=== PATIENT | female | born 1945 ===

== ENCOUNTER 2021-05-25 06:42 | Day surgery (SDC) | payer OTHER | END 2021-05-25 11:30 | disposition home or self-care (01) | LOC: AMB-ENDOS 06:42 | PROVIDERS: ATTEND Colon & Rectal Surgery | DX: C18.5 Malignant neoplasm of splenic flexure (principal); K64.2 Third degree hemorrhoids; Z20.822 Contact with and (suspected) exposure to COVID-19 ==

== ENCOUNTER 2021-08-08 14:45 | Inpatient (IN) | payer OTHER ==
[~2021-08-08] VITALS: Ht 160 cm; Wt 59.0 kg
[~2021-08-08 14:45] MED LIST: ATORVASTATIN CA10 MG PO; JANUVIA25 MG PO; METFORMIN HCL500 M3 PO; XARELTO10 MG PO
[2021-08-15] MEDS ORDERED: OXYBUTYNIN CHLO10 MG (08:07)
[2021-08-15] MEDS ORDERED: GABAPENTIN100 M2 (08:07)
[2021-08-15] MEDS ORDERED: GLIMEPIRIDE4 M1 (08:08)
[2021-08-15] MEDS ORDERED: JANUMET 50-1,01 EACH (08:08)
[2021-08-15] MEDS ORDERED: FERROUS SULFAT325 MG (08:08)
[2021-08-15] MEDS ORDERED: ATORVASTATIN CA20 MG (08:08)
[2021-08-15] MEDS ORDERED: VITAMIN B-125000 MCG (08:11)
[2021-08-15] MEDS ORDERED: MECLIZINE HCL12.5 MG (08:12)
[2021-08-15] MEDS ORDERED: VITAMIN C1000 MG (08:12)
[2021-08-15] MEDS ORDERED: AMIODARONE HCL200 MG (08:13)
[2021-08-15] MEDS ORDERED: FOLIC ACID1 MG (08:13)
[2021-08-15] MEDS ORDERED: XARELTO2.5 MG (08:14)
[2021-08-23] MEDS ORDERED: TOPROL XL25 M1 PO (12:42)
[2021-08-23] MEDS ORDERED: XARELTO20 MG PO (12:42)
== END 2021-08-23 15:00 | disposition home or self-care (01) | DRG 329 ==
LOC: O/R 08-14 07:06 → SURH 08-14 08:45 → EDBD 08-14 08:45 → SURH 08-14 16:45
PROVIDERS: ADMIT Colon & Rectal Surgery; ATTEND Colon & Rectal Surgery
PROC: 0DBB4ZZ Excision of Ileum, Percutaneous Endoscopic Approach (ICD-10-PCS; 2021-08-14)
PROC: 0DTN4ZZ Resection of Sigmoid Colon, Percutaneous Endoscopic Approach (ICD-10-PCS; 2021-08-14)
PROC: 0DBP4ZZ Excision of Rectum, Percutaneous Endoscopic Approach (ICD-10-PCS; 2021-08-14)
PROC: 07BB4ZX Excision of Mesenteric Lymphatic, Percutaneous Endoscopic Approach, Diagnostic (ICD-10-PCS; 2021-08-14)
PROC: 0DBU4ZZ Excision of Omentum, Percutaneous Endoscopic Approach (ICD-10-PCS; 2021-08-14)
PROC: 0DBK4ZZ Excision of Ascending Colon, Percutaneous Endoscopic Approach (ICD-10-PCS; principal; 2021-08-14 16:45)
PROC: B020ZZZ Computerized Tomography (CT Scan) of Brain (ICD-10-PCS; 2021-08-16)
PROC: B24BYZZ Ultrasonography of Heart with Aorta using Other Contrast (ICD-10-PCS; 2021-08-19)
PROC: B345ZZZ Ultrasonography of Bilateral Common Carotid Arteries (ICD-10-PCS; 2021-08-19)
PROC: B348ZZZ Ultrasonography of Bilateral Internal Carotid Arteries (ICD-10-PCS; 2021-08-19)
PROC: B020ZZZ Computerized Tomography (CT Scan) of Brain (ICD-10-PCS; 2021-08-21)
DX: C18.2 Malignant neoplasm of ascending colon (principal); I63.81 Other cerebral infarction due to occlusion or stenosis of small artery; C18.5 Malignant neoplasm of splenic flexure; I48.20 Chronic atrial fibrillation, unspecified; I50.22 Chronic systolic (congestive) heart failure; E78.5 Hyperlipidemia, unspecified; R59.0 Localized enlarged lymph nodes; E11.9 Type 2 diabetes mellitus without complications; Z79.4 Long term (current) use of insulin; Z79.01 Long term (current) use of anticoagulants; Z95.0 Presence of cardiac pacemaker

== ENCOUNTER 2021-08-24 15:07 | Inpatient (IN) | payer OTHER ==
[~2021-08-24] VITALS: Ht 160 cm; Wt 59.0 kg
[~2021-08-24 15:07] MED LIST changes: +AMIODARONE HCL200 MG; +ATORVASTATIN CA20 MG; +FERROUS SULFAT325 MG; +FOLIC ACID1 MG; +GABAPENTIN100 M2; +GLIMEPIRIDE4 M1; +JANUMET 50-1,01 EACH; +MECLIZINE HCL12.5 MG; +OXYBUTYNIN CHLO10 MG; +TOPROL XL25 M1 PO; +VITAMIN B-125000 MCG; +VITAMIN C1000 MG; +XARELTO2.5 MG; +XARELTO20 MG PO
--- NOTE | 2021-08-24 15:42 | NUR ---
SE RECIBE PTE ALERTA EN AMBULANCIA EN COMPANIA DE FAMILIAR. FAMILIAR INDICA QUE PTE FUE OPERADA POR Y ABHIJIT LA OPERACION SUFRIO UN CVA. INDICA QUE EL EBTY DE GRACE FUE BRENNAN DE HARMONY Y HOY NO QUIERE COMER, NO PUEDE TRAGAR Y NO HABLA. SE REALIZA EKG Y SE PRESENTA A .
--- NOTE | 2021-08-24 18:16 | NUR ---
SE ORIENTA A FAMILIAR Y PACIENTE SOBRE TRATAMIENTO ORDENADO POR DRA. MARSHALL, LA MISMA VERBALIZA ENTENDER. RN NEWBERRY COLECTAN MUESTRAS ORDENADAS HACIENDO USO DE MEDIDAS ASEPTICAS CORRESPONDIENTES, COLOCA VENOPUNCION PATENTE ELENA DE ERITEMA Y EDEMA Y ADMINISTRA MEDICAMENTOS CORRESPONDIENTES. PENDIENTE RESULTADOS DE LABORATORIOS Y XRAYS.
[2021-08-27] MEDS ORDERED: INFED50 MG/ML (08:53)
== END 2021-09-20 16:30 | disposition expired | DRG 637 ==
LOC: ER 15:07 → ICUI 08-25 00:13 → ICU-2 08-25 00:13 → ICU 08-31 04:54 → MEDI 09-04 22:33 → ICU 09-12 14:29
PROVIDERS: ADMIT Internal Medicine; ATTEND Internal Medicine
PROC: 4A12X4Z Monitoring of Cardiac Electrical Activity, External Approach (ICD-10-PCS; 2021-08-25)
PROC: 30243N1 Transfusion of Nonautologous Red Blood Cells into Central Vein, Percutaneous Approach (ICD-10-PCS; 2021-08-26)
PROC: BW28ZZZ Computerized Tomography (CT Scan) of Head (ICD-10-PCS; 2021-08-26)
PROC: 02HV33Z Insertion of Infusion Device into Superior Vena Cava, Percutaneous Approach (ICD-10-PCS; 2021-08-26)
PROC: 4A033R1 Measurement of Arterial Saturation, Peripheral, Percutaneous Approach (ICD-10-PCS; 2021-08-26)
PROC: 3E0F7SF Introduction of Other Gas into Respiratory Tract, Via Natural or Artificial Opening (ICD-10-PCS; 2021-08-26)
PROC: BW2110Z Computerized Tomography (CT Scan) of Abdomen and Pelvis using Low Osmolar Contrast, Unenhanced and Enhanced (ICD-10-PCS; 2021-08-27)
PROC: BW28ZZZ Computerized Tomography (CT Scan) of Head (ICD-10-PCS; 2021-08-28)
PROC: B54BZZZ Ultrasonography of Right Lower Extremity Veins (ICD-10-PCS; 2021-09-05)
PROC: BW25ZZZ Computerized Tomography (CT Scan) of Chest, Abdomen and Pelvis (ICD-10-PCS; 2021-09-07)
PROC: 3E0F7GC Introduction of Other Therapeutic Substance into Respiratory Tract, Via Natural or Artificial Opening (ICD-10-PCS; 2021-09-07)
PROC: 5A09457 Assistance with Respiratory Ventilation, 24-96 Consecutive Hours, Continuous Positive Airway Pressure (ICD-10-PCS; 2021-09-08)
PROC: 5A1955Z Respiratory Ventilation, Greater than 96 Consecutive Hours (ICD-10-PCS; principal; 2021-09-11)
PROC: 0BH17EZ Insertion of Endotracheal Airway into Trachea, Via Natural or Artificial Opening (ICD-10-PCS; 2021-09-11)
DX: E11.11 Type 2 diabetes mellitus with ketoacidosis with coma (principal); I21.4 Non-ST elevation (NSTEMI) myocardial infarction; G92.8 Other toxic encephalopathy; I63.89 Other cerebral infarction; I50.23 Acute on chronic systolic (congestive) heart failure; J96.00 Acute respiratory failure, unspecified whether with hypoxia or hypercapnia; J18.8 Other pneumonia, unspecified organism; R65.21 Severe sepsis with septic shock; I48.20 Chronic atrial fibrillation, unspecified; E87.4 Mixed disorder of acid-base balance; I13.0 Hypertensive heart and chronic kidney disease with heart failure and stage 1 through stage 4 chronic kidney disease, or unspecified chronic kidney disease; N17.8 Other acute kidney failure; E87.0 Hyperosmolality and hypernatremia; J81.1 Chronic pulmonary edema; N39.0 Urinary tract infection, site not specified; J90 Pleural effusion, not elsewhere classified; Z79.4 Long term (current) use of insulin; E86.0 Dehydration; E78.49 Other hyperlipidemia; R13.19 Other dysphagia; Z95.0 Presence of cardiac pacemaker; E11.40 Type 2 diabetes mellitus with diabetic neuropathy, unspecified; N18.30 Chronic kidney disease, stage 3 unspecified; D64.9 Anemia, unspecified; E87.6 Hypokalemia; I25.10 Atherosclerotic heart disease of native coronary artery without angina pectoris; M79.661 Pain in right lower leg; B96.89 Other specified bacterial agents as the cause of diseases classified elsewhere; Y95 Nosocomial condition; D69.6 Thrombocytopenia, unspecified; Z20.822 Contact with and (suspected) exposure to COVID-19